=== PATIENT | female | born 1955 | race Caucasian/White ===

== ENCOUNTER → 2025-03-10 | Outpatient (CLI) | payer MEDICARE, SELFPAY ==
--- NOTE | 2025-03-10 14:21 | XR_ITS ---
Examination: Right wrist 2 views Technique one AP lateral right wrist 2 views Exam date and time: March 10, 2025 1447 hrs. Indications: Right wrist pain beginning 3 months ago Findings: No fracture or dislocation Prominent osteopenia Moderate to advanced narrowing navicular trapezium first carpometacarpal joints Impression: Moderate to advanced narrowing navicular trapezium first carpometacarpal joints
== END | disposition home or self-care (01) ==
LOC: CDIM 14:10
PROVIDERS: PCP Family Medicine; Referring Provider Nurse Practitioner Family; Visit Provider Nurse Practitioner Family
DX: M25.831 Other specified joint disorders, right wrist (principal)
CPT/HCPCS: 73100